=== PATIENT | female | born 1990 | race Caucasian/White ===

== ENCOUNTER → 2018-10-21 | Outpatient (CLI) | payer MEDICARE, OTHER ==
[~2018-10-21] MED LIST: ACHD5005 PO; ACHYD1T PO; ASP81TEC PO; HYDR-2890 PO; HYDR-34 PO; HYDR15SO6 PO; Hydrocodone Bit/Acetaminophen PO; ONDN4T PO; [UNRECOGNIZED DRUG - CODE] MC
== END | disposition home or self-care (01) ==
LOC: RAD 01-10 09:08 → EDBD 02-16 12:34 → RAD FS 10-08 10:23